=== PATIENT | male | born 1955 | race Two or more races ===

== ENCOUNTER 2024-09-06 08:48 | Inpatient (IN) | payer MEDICARE, OTHER ==
[~2024-09-06] VITALS: Ht 180.3 cm; Wt 93.0 kg
[2024-09-06] MEDS: SODIUM CHLORIDE 0.9% 1,000 ML IV ONE (09:15)
[2024-09-06 09:54] LABS: Basophils # (auto) 0 10 ^3/uL (0-0.2); Basophils % (auto) 0.7 % (0.0-2.0); Eosinophils # (auto) 0 10 ^3/uL (0-0.8); Eosinophils % (auto) 0.2 % (0.0-7.0); Hematocrit 34.4 % (41.0-53.0); Hemoglobin 11.2 g/dL (13.5-17.5); Lymphocytes # (auto) 0.8 10 ^3/uL (0.4-5.4); Mean Corpuscular Hemoglobin 30.4 pg (28.0-32.0); Mean Corpuscular Hgb Conc. 32.6 g/dL (32.0-36.0); Mean Corpuscular Volume 93.2 fL (80.0-100.0); Monocytes # (auto) 0.4 10 ^3/uL (0-1.3); Neutrophils % (auto) 76.1 % (37.0-80.0); Nucleated Red Blood Cells % 0.1 %; Platelet Count (auto) 124 10^3/uL (140-450); Red Blood Cells 3.69 10^6/uL (4.5-5.90); Red Cell Distribution Width 16.9 % (11.8-14.3); White Blood Cell 5.3 10^3/uL (4.4-10.8)
--- NOTE | 2024-09-06 09:56 | ED.PDOC ---
History of Present Illness HPI Comments 68 y.o male with PMH of ESRD, on dialysis, presents to the ED via EMS for a chief complaint of generalized weakness associated with diarrhea that presented 1-2 days ago. Patient was transported from [facility] for dialysis as they do not have a nephrology team at their location. Patient had dialysis yesterday, went up to [place] for vacation and began having loose water stool. Patient presents with lactic acid of 3.3 and BGL of 323 from [facility]. Patient denies any other symptoms or pain. Chief Complaint: General Weakness Time Seen by MD: 09:23 Reviewed Notes: Nurses Notes, Medications, Allergies Allergies: Coded Allergies: Azithromycin (Verified Allergy, Unknown, 09/06/24) Glimepiride (Verified Allergy, Unknown, 09/06/24) Glipizide (Verified Allergy, Unknown, 09/06/24) Information Source: Patient Mode of Arrival: EMS Severity: Moderate Timing: Days (1-2) Duration: Since onset Past Medical History PAST MEDICAL HISTORY: CKF, ESRD Family History Family History: Reviewed,noncontributory to illness Social History Smoker: Non-Smoker Alcohol: Denies ETOH Use Drugs: Denies Drug Use Lives In: Home Constitutional: reports: weakness; denies: chills, diaphoresis, fatigue, fever, malaise, sweats, others EENTM: denies: blurred vision, double vision, ear bleeding, ear discharge, ear drainage, ear pain, ear ringing, eye pain, eye redness, hearing loss, mouth minh n, mouth swelling, nasal discharge, nose bleeding, nose congestion, nose pain, photophobia, tearing, throat pain, throat swelling, voice changes, others Respiratory: denies: cough, hemoptysis, orthopnea, SOB at rest, shortness of breath, SOB with excertion, stridor, wheezing, others Cardiovascular: denies: chest pain, dizzy spells, diaphoresis, Dyspnea on exertion, edema, irregular heart beat, left arm pain, lightheadedness, palpitations, PND, syncope, others Gastrointestinal: reports: diarrhea; denies: abdomen distended, abdominal pain, blood streaked bowels, constipated, dysphagia, difficulty swallowing, hematemesis, melena, nausea, poor appetite, poor fluid intake, rectal bleeding, rectal pain, vomiting, others Genitourinary: denies: burning, dysuria, flank pain, frequency, hematuria, incontinence, penile discharge, penile sore, pain, testicle pain, testicle swelling, urgency, others Neurological: denies: dizziness, fainting, headache, left sided numbness, left sided weakness, numbness, paresthesia, pre-existing deficit, right sided numbness, right sided weakness, seizure, speech problems, tingling, tremors, weakness, others Musculoskeletal: denies: back pain, gout, joint pain, joint swelling, muscle pain, muscle stiffness, neck pain, others Integumetry: denies: bruises, change in color, change in hair/nails, dryness, laceration, lesions, lumps, rash, wounds, others Allergic/Immunocompromised: denies: Difficulty Healing, Frequent Infections, Hives, Itching, others Hematologic/Lymphatic: denies: anemia, blood clots, easy bleeding, easy bruising, swollen glands, others Endocrine: denies: excessive hunger, excessive sweating, excessive thirst, excessive urination, flushing, intolerance to cold, intolerance to heat, unexplained weight gain, unexplained weight loss, others Psychiatric: denies: anxiety, bipolar disorder, depression, hopeless, panic disorder, schizophrenia, sleepless, suicidal, others All Other Systems: Reviewed and Negative Physical Exam General Appearance: No Apparent Distress, Normal HEENT: Normal ENT Inspection, Pharynx Normal, TMs Normal Neck: Full Range of Motion, Non-Tender, Normal, Normal Inspection Respiratory: Chest Non-Tender, Lungs Clear, No Accessory Muscle Use, No Respiratory Distress, Normal Breath Sounds Cardiovascular: No Edema, No JVD, No Murmur, No Gallop, Normal Peripheral Pulses, Regular Rate/Rhythm Breast Exam: Deferred Gastrointestinal: No Organomegaly, Non Tender, No Pulsatile Mass, Normal Bowel Sounds, Soft Genitalia: Deferred Pelvic: Deferred Rectal: Deferred Extremities: No calf tenderness, Normal capillary refill, Normal inspection, Normal range of motion, Non-tender, No pedal edema Musculoskeletal : Apperance: Normal Neurologic: Alert, electrician rectifier maintenance II-XII nml as Tested, No Motor Deficits, Normal Affect, Normal Mood, No Sensory Deficits Cerebellar Function: Normal Reflexes: Normal Skin: Dry, Normal Color, Warm Lymphatic: No Adenopathy Was a procedure done? Was a procedure done?: No Differential Dx Considerations may include: Dehydration, Electrolyte imbalance, Viral syndrome X-Ray, Labs, Meds, VS Vital Signs Date Time Temp Pulse Resp B/P (MAP) Pulse Ox O2 Delivery O2 Flow Rate FiO2 09/06/24 11:08 84 09/06/24 10:37 85 18 126/73 (90) 98 09/06/24 10:15 98.1 86 20 126/73 (90) 98 98.1 09/06/24 10:15 20 20 98 Room Air* 0 21 09/06/24 09:00 87 09/06/24 08:50 98.0 86 18 128/78 (95) 98 Lab Test 09/06/24 11:00 09/06/24 09:30 Range/Units Troponin I High Sensitivity 427 *H 388 *H </=54 ng/L White Blood Count 5.3 4.4-10.8 10^3/uL Red Blood Count 3.69 L 4.5-5.90 10^6/uL Hemoglobin 11.2 L 13.5-17.5 g/dL Hematocrit 34.4 L 41.0-53.0 % Mean Corpuscular Volume 93.2 80.0-100.0 fL Mean Corpuscular Hemoglobin 30.4 28.0-32.0 pg Mean Corpuscular Hemoglobin Concent 32.6 32.0-36.0 g/dL Red Cell Distribution Width 16.9 H 11.8-14.3 % Platelet Count 124 L 140-450 10^3/uL Mean Platelet Volume 7.5 6.9-10.8 fL Neutrophils (%) (Auto) 76.1 37.0-80.0 % Lymphocytes (%) (Auto) 15.0 10.0-50.0 % Monocytes (%) (Auto) 8.0 0.0-12.0 % Eosinophils (%) (Auto) 0.2 0.0-7.0 % Basophils (%) (Auto) 0.7 0.0-2.0 % Neutrophils # (Auto) 4.0 1.6-8.6 10 ^3/uL Lymphocytes # (Auto) 0.8 0.4-5.4 10 ^3/uL Monocytes # (Auto) 0.4 0-1.3 10 ^3/uL Eosinophils # (Auto) 0 0-0.8 10 ^3/uL Basophils # (Auto) 0 0-0.2 10 ^3/uL Nucleated Red Blood Cells 0.1 % Prothrombin Time 12.3 H 9.3-11.8 sec Prothrombin Time INR 1.17 H 0.9-1.15 Activated Partial Thromboplast Time 29.4 24.5-34.5 SEC D-Dimer, Quantitative 0.38 0.0-0.49 mg/L FEU Sodium Level 136 136-145 mmol/L Potassium Level 4.0 3.5-5.1 mmol/L Chloride Level 101 98-107 mmol/L Carbon Dioxide Level 25 20-31 mmol/L Anion Gap 10 5-15 Blood Urea Nitrogen 38 H 9-23 mg/dL Creatinine 4.21 H 0.700-1.30 mg/dL Glomerular Filtration Rate Calc 15 >90 mL/min BUN/Creatinine Ratio 9.0 L 10.0-20.0 Serum Glucose 263 H 74-106 mg/dL Calcium Level 8.5 L 8.7-10.4 mg/dL Magnesium Level 2.4 1.6-2.6 mg/dL Total Bilirubin 2.9 H 0.2-1.0 mg/dL Aspartate Amino Transferase (AST) 35 13-40 U/L Alanine Aminotransferase (ALT) 34 7-40 U/L Alkaline Phosphatase 348 H 46-116 U/L Total Protein 7.3 5.7-8.2 g/dL Albumin 3.8 3.2-4.8 g/dL Current Medications Medications (Trade) Dose Ordered Sig/Gomez Route Start Time Stop Time Status Last Admin Sodium Chloride 1,000 ml @ 1,000 mls/hr Q1H ONCE IV 09/06/24 09:15 09/06/24 10:14 DC 09/06/24 09:15 X-Ray, Labs, Meds, VS Comment This 68-year-old male with a past medical history significant for end-stage renal disease [facility] He there was concern that he may require admission followed by dialysis. The time I interviewed, he states he was abdominal discomfort and multiple loose who has had largely resolved. His labs, however, was significant for an elevated total bilirubin and a troponin 388 and increased to 427 Time of 1ST Reevaluation: 09:55 Reevaluation 1ST: Unchanged Patient Education/Counseling: Diagnosis, Treatment, Prognosis Family Education/Counseling: No Family Present Additional Information The following tests were ordered, and results were reviewed by me: LAB, EKG, and PHA Additional Information was gathered from interviewing the following independent historians: paramedics I discussed treatment and results with medical personnel and spouse Departure 1 Departure Time of Disposition: 12:30 Impression: Primary Impression: Chest pain Additional Impressions: NSTEMI (non-ST elevated myocardial infarction) End stage renal disease Disposition: ADMITTED INPATIENT Admit to: Tele Condition: Serious Critical Care Note Critical Care Time?: No Stability Stability form required: No I personally scribed for VÍCTOR SARGENT MD ([email or web address]) on 09/06/24 at 09:56. Electronically submitted by Jihan Zaidi ([facility]). VÍCTOR SARGENT MD Sep 06, 2024 09:56
[2024-09-06 10:13] LABS: Alanine Aminotransferase 34 U/L (7-40); Albumin 3.8 g/dL (3.2-4.8); Anion Gap 10 (5-15); Aspartate Aminotransferase 35 U/L (13-40); Carbon Dioxide 25 mmol/L (20-31); Chloride 101 mmol/L (98-107); INR 1.17 (0.9-1.15); Magnesium 2.4 mg/dL (1.6-2.6); Partial Thromboplastin Time 29.4 SEC (24.5-34.5); Prothrombin Time 12.3 sec (9.3-11.8); Sodium 136 mmol/L (136-145); Total Protein 7.3 g/dL (5.7-8.2)
[2024-09-06 10:15] VITALS: PULSE 20; RESP 20; O2SAT 98
[2024-09-06 10:22] LABS: Alkaline Phosphatase 348 U/L (46-116); Bilirubin, Total 2.9 mg/dL (0.2-1.0); Blood Urea Nitrogen 38 mg/dL (9-23); Calcium 8.5 mg/dL (8.7-10.4); Glucose 263 mg/dL (74-106)
[2024-09-06] MEDS ORDERED: DEXTROSE (50%) 50ML SYRG IV PRN (15:00)
[2024-09-06] MEDS: FUROSEMIDE 40 MG/4 ML VIAL IV ONE (15:07)
[2024-09-06] MEDS: ATORVASTATIN 20 MG TAB PO ONE (15:07)
--- NOTE | 2024-09-06 15:13 | DVHHP2 ---
Admitting Diagnosis: Acute noninfectious GE with dehydration ESRD on HD TTS History of Present Illness 68 yo M with ESRD on HD TTS, IDDM, HFpEF transferred from [facility]. Admitted for vomiting and diarrhea, but transferred for HD. Patient received dialysis in [facility] in [place], last session on 09/05/24, access L AVF. Reported 1 episode of food vomiting and diarrhea with no blood, mucous or black stool which now has improved. However patient presents with lactic acid of 3.3 and BGL of 323 from [facility]. Patient has CGM. Reported compliance with medication. Received IVF in ED and [facility]. Labs significant for troponin elevation. Patient denies chest pain, SOB, new cough or sputum changes, diaphoresis. On my evaluation mendoza ent with trace crackles on basal b/l lung hood, taking lasix 80mg PO on non dialysis days. POCUS done with no pericardial effusion, normal contractility, grossly normal valves, IVC >2cm with <50% excursion on inspiration. Denies current smoking, drug or alcohol use. Lives in [place] with family, currently visiting [employer] for vacation. Patient had a LHC 1 year [employer] with normal cor onaries per patient, and follows up regularly with cardiology. Physical exam Alert, oriented x4 Moist mucous membranes PERRLA Mild b/l crackles on bases S1 S2 RRR no murmur BS+ abdomen soft nontender No LE edema Labs Hb 11 Plt 124 BUN 38 Cr 4.2 Glucose elevated Trop 388-474 POCUS was done and interpreted by me today, no pericardial effusion, normal contractility, normal valves A/P Acute noninfectious gastroenteritis dehydration 2/2 above ESRD on HD TTS acute on chronic diastolic heart failure HFpEF IDDM Thrombocytopenia Anemia chronic disease Troponin elevation 2/2 decreased clearance in setting of ESRD, no DC Obtain EKG, lactate, CXR Hold IVF for now resume lasix once maintain spo2 >94% resume plavix, lipitor hold coreg for now nephro consult for resumption of regular HD basal bolus insulin, FSx4 Date of Service: Sep 06, 2024 Billing Provider: ELIZABETH GUZMAN MD Common Visit Codes: [id number] INP/OBS CARE (HIGH), PROCEDURE ONLY (Cardiac point of care ultrasound [id number]) ELIZABETH GUZMAN MD Sep 06, 2024 15:13
--- NOTE | 2024-09-06 16:23 | DVH ---
XY CHEST TWO VIEWS ROUTINE CLINICAL HISTORY: pulm edema COMPARISON: 09/06/2024 report only TECHNIQUE: Frontal and lateral view of the chest was obtained FINDINGS: Lines and Tubes: None Lungs: No focal consolidation. Mild interstitial prominence. Elevation of the right hemidiaphragm. Minimal blunting of the right costophrenic angle No pneumothorax. Cardiomediastinal contours: Unremarkable Bones: No acute osseous abnormality. Chronic fracture deformity of left posterior ribs 6 through 8. IMPRESSION: Mild pulmonary vascular congestion. Trace right-sided pleural effusion.
[2024-09-06] MEDS: InsuLIN REG 1unit/0.01ml Soln (100units/ml) SC SCH ×2 (17:00→21:49)
[2024-09-06] MEDS: ACCU-CHEK COMFORT CURVE STRIP VI SCH (17:00)
--- NOTE | 2024-09-06 19:29 | DVHINCON2 ---
Date of service: Sep 06, [address] Sathya Mari Reason for Consultation ESRD History of Present Illness Mr. Monroe is a 68-year-old male with known history of ESRD on maintenance hemodialysis presented for further evaluation and management of abdominal pain and diarrhea. He initially presented to [facility] with above mentioned symptoms and was treated with intravenous fluids and transferred for further care. He seen in the emergency department awake alert conversant and in no acute distress. He had a family member who is at the bedside during my evaluation. He currently denies shortness of breath or chest pain. He has ongoing follow-up for a chronic right foot wound. Past Medical History ESRD Hypertension diabetes Peripheral artery disease Allergies: Coded Allergies: Azithromycin (Verified Allergy, Unknown, 09/06/24) Glimepiride (Verified Allergy, Unknown, 09/06/24) Glipizide (Verified Allergy, Unknown, 09/06/24) Current Medications Current Medications Medications (Trade) Dose Ordered Sig/Gomez Route PRN Reason Start Time Stop Time Status Last Admin Insulin Glargine (Lantus) 15 units HS SC 09/06/24 22:00 Diagnostic Test (Pha) (Accu-Chek Comfort Curve T) 1 strip ACHS 09/06/24 17:00 09/06/24 17:00 Insulin Human Regular (InsuLIN R) HS SC 09/06/24 22:00 Insulin Human Regular (InsuLIN R) AC SC 09/06/24 17:00 09/06/24 17:00 Dextrose 50 ml UD PRN IV Blood Sugar LESS THAN 60 09/06/24 15:00 Review of Systems denies fever, chills, nausea, chest pain, Rigors, hematochezia, hemoptysis. H&P Exam Vital Signs/I&O Vital Sign Date Time Temp Pulse Resp B/P (MAP) Pulse Ox O2 Delivery O2 Flow Rate FiO2 09/06/24 17:40 88 18 129/70 (89) 97 09/06/24 10:15 98.1 98.1 09/06/24 10:15 Room Air* 0 21 Physical Exam gen: nad heent: mmmn lungs: cta cvs: no rub abd: soft exT: no edema skin: no rash neuro: awake and alert Labs/Diagnostic Data Labs/Diagnostic Data Laboratory Tests Test 09/06/24 17:33 09/06/24 17:06 09/06/24 13:35 09/06/24 11:00 Range/Units POC Glucose 254 H 70-106 mg/dl Lactic Acid Level 1.6 0.4-2.0 mmol/L Troponin I High Sensitivity 474 *H 427 *H </=54 ng/L Test 09/06/24 09:30 Range/Units White Blood Count 5.3 4.4-10.8 10^3/uL Red Blood Count 3.69 L 4.5-5.90 10^6/uL Hemoglobin 11.2 L 13.5-17.5 g/dL Hematocrit 34.4 L 41.0-53.0 % Mean Corpuscular Volume 93.2 80.0-100.0 fL Mean Corpuscular Hemoglobin 30.4 28.0-32.0 pg Mean Corpuscular Hemoglobin Concent 32.6 32.0-36.0 g/dL Red Cell Distribution Width 16.9 H 11.8-14.3 % Platelet Count 124 L 140-450 10^3/uL Mean Platelet Volume 7.5 6.9-10.8 fL Neutrophils (%) (Auto) 76.1 37.0-80.0 % Lymphocytes (%) (Auto) 15.0 10.0-50.0 % Monocytes (%) (Auto) 8.0 0.0-12.0 % Eosinophils (%) (Auto) 0.2 0.0-7.0 % Basophils (%) (Auto) 0.7 0.0-2.0 % Neutrophils # (Auto) 4.0 1.6-8.6 10 ^3/uL Lymphocytes # (Auto) 0.8 0.4-5.4 10 ^3/uL Monocytes # (Auto) 0.4 0-1.3 10 ^3/uL Eosinophils # (Auto) 0 0-0.8 10 ^3/uL Basophils # (Auto) 0 0-0.2 10 ^3/uL Nucleated Red Blood Cells 0.1 % Prothrombin Time 12.3 H 9.3-11.8 sec Prothrombin Time INR 1.17 H 0.9-1.15 Activated Partial Thromboplast Time 29.4 24.5-34.5 SEC D-Dimer, Quantitative 0.38 0.0-0.49 mg/L FEU Sodium Level 136 136-145 mmol/L Potassium Level 4.0 3.5-5.1 mmol/L Chloride Level 101 98-107 mmol/L Carbon Dioxide Level 25 20-31 mmol/L Anion Gap 10 5-15 Blood Urea Nitrogen 38 H 9-23 mg/dL Creatinine 4.21 H 0.700-1.30 mg/dL Glomerular Filtration Rate Calc 15 >90 mL/min BUN/Creatinine Ratio 9.0 L 10.0-20.0 Serum Glucose 263 H 74-106 mg/dL Calcium Level 8.5 L 8.7-10.4 mg/dL Magnesium Level 2.4 1.6-2.6 mg/dL Total Bilirubin 2.9 H 0.2-1.0 mg/dL Aspartate Amino Transferase (AST) 35 13-40 U/L Alanine Aminotransferase (ALT) 34 7-40 U/L Alkaline Phosphatase 348 H 46-116 U/L Troponin I High Sensitivity 388 *H </=54 ng/L Total Protein 7.3 5.7-8.2 g/dL Albumin 3.8 3.2-4.8 g/dL Assessment IMP: 1) ESRD on dialysis 2) volume deplete state 3) anemia 4) enteritis 5) type 2 diabetes REC: - Hemodialysis September 07 - Discussed with patient and patient's visit regarding plan of care from nephrology perspective - clinically stable for discharge after dialysis. Plan discussed with: Patient, Spouse ASLMA OBRIEN MD Sep 06, 2024 19:29
[2024-09-06 20:00] VITALS: PULSE 73; RESP 20; O2SAT 95
[2024-09-06 21:00] VITALS: BP 116/65; PULSE 86; RESP 22; TEMP 97.9; O2SAT 97
[2024-09-06] MEDS: INSULIN LANTUS (GLARGINE) 1 /0.01ml (100units/ml) SC SCH (21:50)
[2024-09-07] VITALS (8 sets, daily range): BP systolic 114–153; BP diastolic 66–86; PULSE 77–94; RESP 16–20; TEMP 97.4–98.4; O2SAT 94–98
[2024-09-07] MEDS: SODIUM CHL 0.9% 1000 ML BAG XX ONE (07:00)
[2024-09-07 07:01] LABS: Chloride 104 mmol/L (98-107); Potassium 3.6 mmol/L (3.5-5.1); Sodium 137 mmol/L (136-145)
[2024-09-07 07:02] LABS: Anion Gap 9 (5-15); Carbon Dioxide 24 mmol/L (20-31)
[2024-09-07 07:07] LABS: BUN/Creatinine Ratio 9.4 (10.0-20.0)
[2024-09-07 08:27] LABS: Blood Urea Nitrogen 44 mg/dL (9-23); Calcium 8.3 mg/dL (8.7-10.4); Glucose 72 mg/dL (74-106)
[2024-09-07] MEDS: CLOPIDOGREL BISULFATE 75 MG TAB PO ONE (09:52)
--- NOTE | 2024-09-07 12:15 | DVHPN2 ---
Reviewed: Care Plan, H&P, Labs, Medications, Previous Orders, Radiology Changes from previous H/P or p: No Changes Objective Vitals Vital Signs Date Time Temp Pulse Resp B/P (MAP) Pulse Ox O2 Delivery O2 Flow Rate FiO2 09/07/24 08:56 98.3 88 16 146/77 (100) 97 98.3 09/07/24 08:00 Room Air* 0 21 Intake/Output Intake and Output 09/07/24 07:00 Intake Total 1345 ml Balance 1345 ml Intake Oral 345 ml IV Total 1000 ml Medications Current Medications Medications Dose Ordered Sig/Gomez Route Start Time Stop Time Status Last Admin Dose Admin Insulin Glargine 15 units HS SC 09/06/24 22:00 09/06/24 21:50 15 UNITS Diagnostic Test (Pha) 1 strip ACHS 09/06/24 17:00 09/07/24 11:37 1 STRIP Insulin Human Regular HS SC 09/06/24 22:00 09/06/24 21:49 2 UNITS Insulin Human Regular AC SC 09/06/24 17:00 09/07/24 11:41 3 UNITS Dextrose 50 ml UD PRN IV 09/06/24 15:00 Laboratory Results Laboratory Tests 09/06/24 09:30 09/07/24 05:19 Chemistry Test 09/07/24 05:19 Calcium Level 8.3 mg/dL (8.7-10.4) L Labs and/or images reviewed: Labs reviewed by me, Image(s) reviewed by me Assessment/Plan Assessment/Plan Patient transferred from [facility] ESRD on hemodialysis: Consult by Dr. Lopez appreciated patient getting hemodialysis today Hypertension Type 2 diabetes History of congestive heart failure Chronic anemia Possible gastroenteritis Elevated troponin [address] Estrella Patient Lives in [place] and was visiting [facility] Patient does not want to wait for the Cardiology consultation and wants to leave against medical advice, consequences and complications explained to the patient Time spent 65 minutes Patient is full code Advanced care planning time 20 minutes Plan discussed with: Patient My Orders Orders - JOSE DANIEL CARRILLO MD Procedure Category Date Status Time * Cardiology Consult CONS 09/07/24 Transmitted 12:04 Date of Service: Sep 07, 2024 Billing Provider: JOSE DANIEL CARRILLO MD Common Visit Codes: [id number] INP/OBS CARE(HIGH) Secondary Visit Codes: [id number] CARE PLAN 30 MINUTES JOSE DANIEL CARRILLO MD Sep 07, 2024 12:15
--- NOTE | 2024-09-07 14:41 | DVHINCON2 ---
Date Seen: Sep 07, 2024 Referring Physician MD Dinh Reason for Consultation Elevated troponin History of Present Illness This is a 68-year-old male patient who presents to emergency room with chief complaint of diarrhea and dehydration. The patient was transferred from [facility] for higher level of care. Patient reports recent dialysis and diarrhea, leading him to feel dehydrated which is why he went to the emergency room and was brought here. Initial twelve lead electrocardiogram reveals normal sinus rhythm with right bundle branch block and left anterior fascicular block. The patient denies any cardiac symptoms. Initial troponin level of 388ng/L with peak level of 474ng/L. Significant past medical history includes congestive heart failure, hypertension, hyperlipidemia, end-stage renal disease on hemodialysis, insulin-dependent type 2 diabetes mellitus, and anemia. The patient reports that he follows up with a heavy forger at [facility]. He reports undergoing a coronary angiogram approximately one year ago without any catheter based intervention at that time. Past Medical History Past medical history reviewed. No other significant than mentioned above. Past Surgical History Right foot surgery Left arm fistula Family History Family history reviewed. Social History Denies the use of tobacco, alcohol or illicit drugs. Allergies: Coded Allergies: Azithromycin (Verified Allergy, Unknown, 09/06/24) Glimepiride (Verified Allergy, Unknown, 09/06/24) Glipizide (Verified Allergy, Unknown, 09/06/24) Home Meds Home medications reviewed. Current Medications Current Medications Medications (Trade) Dose Ordered Sig/Gomez Route PRN Reason Start Time Stop Time Status Last Admin Insulin Glargine (Lantus) 15 units HS SC 09/06/24 22:00 09/06/24 21:50 Diagnostic Test (Pha) (Accu-Chek Comfort Curve T) 1 strip ACHS 09/06/24 17:00 09/07/24 11:37 Insulin Human Regular (InsuLIN R) HS SC 09/06/24 22:00 09/06/24 21:49 Insulin Human Regular (InsuLIN R) AC SC 09/06/24 17:00 09/07/24 11:41 Dextrose 50 ml UD PRN IV Blood Sugar LESS THAN 60 09/06/24 15:00 Review of Systems Constitutional: No symptom reported Ears, Nose, & Throat: No symptom reported Eyes: No symptom reported Neurological: No symptoms reported Pulmonary/Respiratory: No symptoms reported Cardiovascular: No symptom reported Gastrointestinal: Diarrhea Genitourinary: No symptom reported Musculoskeletal: No symptom reported Skin: No symptom reported Psychiatric: No symptom reported Endocrine: No symptom reported Hematologic/Lymphatic: No symptom reported Vital Signs Vital Signs Date Time Temp Pulse Resp B/P (MAP) Pulse Ox O2 Delivery O2 Flow Rate FiO2 09/07/24 13:00 97.4 87 18 153/85 (107) 98 97.4 09/07/24 08:00 Room Air* 0 21 Physical Exam General Appearance: Cooperative. Well-developed. Well-nourished. No acute distress. Pulmonary/Respiratory: Clear, bilateral breaths sounds. Cardiovascular/Chest: Regular rate and rhythm. Peripheral Pulses: 2+ Radial (R). 2+ Radial (L). Abdominal Exam: Normal bowel sounds. Ankle Exam: Negative ankle edema Lower extremities: Negative lower extremity edema Neuro/Mental Status: A/OX4, coherent. Thoughts/Psych: Normal thought pattern. Appropriate mood and affect. Good judgment and insight. Appearance: No acute distress. Skin Exam: Normal inspection. Normal color. Warm and dry. Left arm fistula Labs/Diagnostic Data Labs Test 09/07/24 11:33 09/07/24 05:19 09/06/24 17:06 09/06/24 13:35 Range/Units POC Glucose 179 H 70-106 mg/dl Sodium Level 137 136-145 mmol/L Potassium Level 3.6 3.5-5.1 mmol/L Chloride Level 104 98-107 mmol/L Carbon Dioxide Level 24 20-31 mmol/L Anion Gap 9 5-15 Blood Urea Nitrogen 44 H 9-23 mg/dL Creatinine 4.67 H 0.700-1.30 mg/dL Glomerular Filtration Rate Calc 13 >90 mL/min BUN/Creatinine Ratio 9.4 L 10.0-20.0 Serum Glucose 72 #L 74-106 mg/dL Calcium Level 8.3 L 8.7-10.4 mg/dL Lactic Acid Level 1.6 0.4-2.0 mmol/L Troponin I High Sensitivity 474 *H </=54 ng/L Test 09/06/24 09:30 Range/Units White Blood Count 5.3 4.4-10.8 10^3/uL Red Blood Count 3.69 L 4.5-5.90 10^6/uL Hemoglobin 11.2 L 13.5-17.5 g/dL Hematocrit 34.4 L 41.0-53.0 % Mean Corpuscular Volume 93.2 80.0-100.0 fL Mean Corpuscular Hemoglobin 30.4 28.0-32.0 pg Mean Corpuscular Hemoglobin Concent 32.6 32.0-36.0 g/dL Red Cell Distribution Width 16.9 H 11.8-14.3 % Platelet Count 124 L 140-450 10^3/uL Mean Platelet Volume 7.5 6.9-10.8 fL Neutrophils (%) (Auto) 76.1 37.0-80.0 % Lymphocytes (%) (Auto) 15.0 10.0-50.0 % Monocytes (%) (Auto) 8.0 0.0-12.0 % Eosinophils (%) (Auto) 0.2 0.0-7.0 % Basophils (%) (Auto) 0.7 0.0-2.0 % Neutrophils # (Auto) 4.0 1.6-8.6 10 ^3/uL Lymphocytes # (Auto) 0.8 0.4-5.4 10 ^3/uL Monocytes # (Auto) 0.4 0-1.3 10 ^3/uL Eosinophils # (Auto) 0 0-0.8 10 ^3/uL Basophils # (Auto) 0 0-0.2 10 ^3/uL Nucleated Red Blood Cells 0.1 % Prothrombin Time 12.3 H 9.3-11.8 sec Prothrombin Time INR 1.17 H 0.9-1.15 Activated Partial Thromboplast Time 29.4 24.5-34.5 SEC D-Dimer, Quantitative 0.38 0.0-0.49 mg/L FEU Magnesium Level 2.4 1.6-2.6 mg/dL Total Bilirubin 2.9 H 0.2-1.0 mg/dL Aspartate Amino Transferase (AST) 35 13-40 U/L Alanine Aminotransferase (ALT) 34 7-40 U/L Alkaline Phosphatase 348 H 46-116 U/L Total Protein 7.3 5.7-8.2 g/dL Albumin 3.8 3.2-4.8 g/dL Assessment Acute on chronic HFrEF, NYHA class III Possible gastroenteritis NSTEMI, likely type II Tricuspid valve regurgitation, moderate degree Insulin-dependent type 2 diabetes mellitus End-stage renal disease on hemodialysis Pulmonary hypertension Thrombocytopenia Plan/Recommendation We will continue with the following plan/recommendations (Dr. Estrella): * Echocardiogram reveals EF 35-40% * Initiate GDMT for CHF as tolerated * Avoid SGLT2i given low GFR * Avoid BLAIR/ARB/ARNI given ESRD * BP control * Labs: lipid panel * Nephrology consult and recommendations Case discussed with . Patient denies any cardiac symptoms at time of assessment and prior to emergency room arrival. Patient underwent a coronary angiogram with left heart catheterization last year without any catheter based intervention. If patient begins to have cardiac symptoms, he may be a candidate for ischemic workup. In the meantime, continue with medical management. Thank you for allowing us to care for this patient. Please call with any questions or concerns. Critical care time spent: 44 minutes This medical document was created using an electronic medical record system with voice recognition software and computerized dictation system. Although this document has been carefully reviewed, there might still be some phonetic and typographical errors. Occasional wrong-word or ``sound-alike substitutions may have occurred due to the inherent limitations of voice recognition software. These areas are purely typographical due to imperfections of the software p stephanie and do not reflect any compromise in the patient's medical care. Please read the chart carefully and recognize, using context, where these substitutions have occurred. Plan discussed with: Patient NYHA Physical activity limitations: Class3(Marked) ordinary (activity causes symtoms) Date of Service: Sep 07, 2024 Billing Provider: EDISON GUIDO Cardiology Common Codes: 70555-YJUIYZD INP/OBS CARE (High) Cardiology Consultation Codes: 08405-[id number] CONSULT <45MIN EDISON GUIDO Sep 07, 2024 14:41
--- NOTE | 2024-09-07 16:12 | DVHPN2 ---
Progress Note Date Seen: Sep 07, 2024 Medical Necessity Reason Pt with a Central, PICC or Fol: No Subjective Review of Systems No new complaints Patient reports: No new complaints Objective vital signs Vital Sign Date Time Temp Pulse Resp B/P (MAP) Pulse Ox O2 Delivery O2 Flow Rate FiO2 09/07/24 13:00 97.4 87 18 153/85 (107) 98 97.4 09/07/24 08:00 Room Air* 0 21 Total Intake and Output 09/06/24 09/06/24 09/07/24 15:00 23:00 07:00 Intake Total 1000 ml 345 ml Balance 1000 ml 345 ml medications Current Medications Medications Dose Ordered Sig/Gomez Route Start Time Stop Time Status Last Admin Dose Admin Insulin Glargine 15 units HS SC 09/06/24 22:00 09/06/24 21:50 15 UNITS Diagnostic Test (Pha) 1 strip ACHS 09/06/24 17:00 09/07/24 11:37 1 STRIP Insulin Human Regular HS SC 09/06/24 22:00 09/06/24 21:49 2 UNITS Insulin Human Regular AC SC 09/06/24 17:00 09/07/24 11:41 3 UNITS Dextrose 50 ml UD PRN IV 09/06/24 15:00 Examination Gen: Appears stated age, in no acute distress Lungs: Bilateral air entry, no rales Heart: RRR. normal S1 and S2 Ext: No edema Neuro: AOx4 laboratory and microbiology Laboratory Tests 09/07/24 05:19 09/06/24 09:30 Test 09/07/24 05:19 Range/Units Serum Glucose 72 #L 74-106 mg/dL Labs and/or images reviewed: Labs reviewed by me Problem List/Assessment/Plan Problem List/Assessment/Plan IMP: 1) ESRD on dialysis- last dialysis today. [place] from out of area has dialysis on MWF 2) Volume depleted state 3) Anemia-last hgb 11.2 4) Enteritis 5) Type 2 diabetes REC: - Chemistry panel - Clinically stable for discharge after dialysis. 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 - Will continue to follow if pt has not discharged Plan discussed with: Patient ETHEL MARAVILLA LISSETTE Sep 07, 2024 16:12
--- NOTE | 2024-09-07 17:00 | DVHSR ---
APPROVED REPORT EXAM: Two-dimensional and M-mode echocardiogram with Doppler and color Doppler. Blood Pressure: 153/85 mmHg INDICATION evaluate cardiac function RISK FACTORS Height: 5'11, Weight: 210 DIMENSIONS LVDd4.1 (3.8-5.7cm)LA (2D)3.4 (1.9-4.0cm)Aortic Root3.4 (2.0-3.7cm) LVDs3.2 (2.5-4.0cm)LA (MM) (1.9-4.0cm)Aortic Cusp Exc1.5 (1.5-2.0cm) EF (%) 42.0 (55-70%)Rt. Atrium5.0 (1.9-4.0cm)Asc. Aorta3.1 cm IVSd1.1 (0.7-1.1cm)RV (D) (1.8-2.4cm) PWd1.2 (0.7-1.1cm) Mitral Valve MitralMitral Stenosis E wave1.25m/sMV Mean GR.mmHg A wave0.67m/sMV Peak GR.127mmHg E/A ratio1.92D MVAcm2 DECEL [id number] 1/2 Timems Aortic Valve Aortic ValveAortic Stenosis V10.73m/Nicole Mean GR.2mmHg V21.05m/Nicole Peak GR.4mmHg LVOT Diameter2.1 (1.8-2.4cm)Doppler AVA2.41cm2 AI P 1/2 Cyhy902.08ms Pulmonic Valve V21.32m/s Tricuspid Valve TR Velocity2.77m/s [id number] Conclusion Technically good study sinus rhythm. Left atrial enlargement. Right atrial enlargement. Mild mitral annular calcification. Mild thickening of the tip of the anterior mitral leaflet. The a ortic valve leaflets are sclerotic with calcification of the right coronary cusp however adequate exc ursion. The pulmonic valve is structurally normal. The tricuspid valve is normal. Left ventricular systolic performance is diminished. EF is approximately 35-40% with [id number] e global hypokinesis. Right ventricular function appears to be mildly hypokinetic as well. There is moderate mitral insufficiency with moderate tricuspid regurgitation and notable pulmonary hy pertension. There is eefq-eg-vstccuzg aortic insufficiency. No pericardial effusion masses or vegetations.
--- NOTE | 2024-09-07 19:12 | ECG ---
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
[2024-09-08 01:00] VITALS: BP 141/74; PULSE 86; RESP 22; TEMP 98.1; O2SAT 98
[2024-09-08 05:00] VITALS: BP 121/63; PULSE 81; RESP 20; TEMP 98.1; O2SAT 96
--- NOTE | 2024-09-08 05:21 | ECG ---
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
[2024-09-08 08:00] VITALS: RESP 16
[2024-09-08 09:00] VITALS: BP 144/82; PULSE 90; RESP 17; TEMP 98.1; O2SAT 98
[2024-09-08] MEDS: METOPROLOL SUCCINATE XL 50 MG TAB PO SCH (09:49)
--- NOTE | 2024-09-08 12:05 | DVHPN2 ---
Reviewed: Care Plan, H&P, Labs, Medications, Previous Orders, Radiology Changes from previous H/P or p: No Changes Objective Vitals Vital Signs Date Time Temp Pulse Resp B/P (MAP) Pulse Ox O2 Delivery O2 Flow Rate FiO2 09/08/24 09:51 90 144/82 09/08/24 09:00 98.1 17 98 98.1 09/08/24 08:00 Room Air* 0 21 Intake/Output Intake and Output 09/08/24 07:00 Intake Total 345 ml Balance 345 ml Intake Oral 345 ml Medications Current Medications Medications Dose Ordered Sig/Gomez Route Start Time Stop Time Status Last Admin Dose Admin Insulin Glargine 15 units HS SC 09/06/24 22:00 09/07/24 21:42 15 UNITS Diagnostic Test (Pha) 1 strip ACHS 09/06/24 17:00 09/08/24 06:07 1 STRIP Insulin Human Regular HS SC 09/06/24 22:00 09/07/24 21:41 6 UNITS Insulin Human Regular AC SC 09/06/24 17:00 09/07/24 17:34 3 UNITS Dextrose 50 ml UD PRN IV 09/06/24 15:00 Metoprolol Succinate 25 mg DAILY PO 09/08/24 10:00 Laboratory Results Laboratory Tests 09/06/24 09:30 09/07/24 05:19 Assessment/Plan Assessment/Plan Patient transferred from [facility] ESRD on hemodialysis: Consult by Dr. John desai patient received hemodialysis Hypertension Type 2 diabetes History of congestive heart failure Chronic anemia Possible gastroenteritis Elevated troponin [address] Estrella appreciated, left heart catheterization last year was normal per patient, no further cardiac intervention Plan discussed with: Patient My Orders Orders - JOSE DANIEL CARRILLO MD Procedure Category Date Status Time * Cardiology Consult CONS 09/07/24 Transmitted 12:04 Date of Service: Sep 08, 2024 Billing Provider: JOSE DANIEL CARRILLO MD Common Visit Codes: [id number] INP/OBS CARE(HIGH) JOSE DANIEL CARRILLO MD Sep 08, 2024 12:05
--- NOTE | 2024-09-08 12:09 | DVHDS2 ---
Discharge Summary Date of Admission Sep 06, 2024 at 14:46 Date of Discharge: Sep 08, 2024 Admitting Diagnosis Shortness of breaths and chest pain Wounds: None Labs/Diagnostic Data: Laboratory Results Test 09/08/24 06:00 09/07/24 05:19 09/06/24 17:06 09/06/24 13:35 POC Glucose 69 mg/dl (70-106) Sodium Level 137 mmol/L (136-145) Potassium Level 3.6 mmol/L (3.5-5.1) Chloride Level 104 mmol/L (98-107) Carbon Dioxide Level 24 mmol/L (20-31) Anion Gap 9 (5-15) Blood Urea Nitrogen 44 mg/dL (9-23) Creatinine 4.67 mg/dL (0.700-1.30) Glomerular Filtration Rate Calc 13 mL/min (>90) BUN/Creatinine Ratio 9.4 (10.0-20.0) Serum Glucose 72 mg/dL (74-106) Calcium Level 8.3 mg/dL (8.7-10.4) Lactic Acid Level 1.6 mmol/L (0.4-2.0) Troponin I High Sensitivity 474 ng/L (</=54) Test 09/06/24 09:30 White Blood Count 5.3 10^3/uL (4.4-10.8) Red Blood Count 3.69 10^6/uL (4.5-5.90) Hemoglobin 11.2 g/dL (13.5-17.5) Hematocrit 34.4 % (41.0-53.0) Mean Corpuscular Volume 93.2 fL (80.0-100.0) Mean Corpuscular Hemoglobin 30.4 pg (28.0-32.0) Mean Corpuscular Hemoglobin Concent 32.6 g/dL (32.0-36.0) Red Cell Distribution Width 16.9 % (11.8-14.3) Platelet Count 124 10^3/uL (140-450) Mean Platelet Volume 7.5 fL (6.9-10.8) Neutrophils (%) (Auto) 76.1 % (37.0-80.0) Lymphocytes (%) (Auto) 15.0 % (10.0-50.0) Monocytes (%) (Auto) 8.0 % (0.0-12.0) Eosinophils (%) (Auto) 0.2 % (0.0-7.0) Basophils (%) (Auto) 0.7 % (0.0-2.0) Neutrophils # (Auto) 4.0 10 ^3/uL (1.6-8.6) Lymphocytes # (Auto) 0.8 10 ^3/uL (0.4-5.4) Monocytes # (Auto) 0.4 10 ^3/uL (0-1.3) Eosinophils # (Auto) 0 10 ^3/uL (0-0.8) Basophils # (Auto) 0 10 ^3/uL (0-0.2) Nucleated Red Blood Cells 0.1 % Prothrombin Time 12.3 sec (9.3-11.8) Prothrombin Time INR 1.17 (0.9-1.15) Activated Partial Thromboplast Time 29.4 SEC (24.5-34.5) D-Dimer, Quantitative 0.38 mg/L FEU (0.0-0.49) Magnesium Level 2.4 mg/dL (1.6-2.6) Total Bilirubin 2.9 mg/dL (0.2-1.0) Aspartate Amino Transferase (AST) 35 U/L (13-40) Alanine Aminotransferase (ALT) 34 U/L (7-40) Alkaline Phosphatase 348 U/L (46-116) Total Protein 7.3 g/dL (5.7-8.2) Albumin 3.8 g/dL (3.2-4.8) Other Laboratory Tests 09/07/24 05:19 09/06/24 09:30 Brief Hx & Hospital Course: 68-year-old male with using [place] was visiting [facility] got admitted with a [facility] transferred here and admitted. History of ESRD on hemodialysis patient had mild gastroenteritis which has resolved. history of hypertension diabetes congestive heart failure chronic anemia troponin elevated [address] Estrella patient had left heart catheterization last year per patient and it was normal advised conservative management. Patient received hemodialysis by Dr. Lopez group. While awaiting further stabilization patient decided to leave AMA and left AMA on 09/08/2024. General condition stable but poor at the time of leaving AMA. Consequences and complications including possible explained to the patient and he verbalized understanding and still decided to leave AMA Consults/Reason for consult Cardiology Dr. Estrella Nephrology Dr. Lopez Operations or Procedures Hemodialysis Condition at Discharge: Fair Final Diagnosis/Problems List Patient transferred from [facility] ESRD on hemodialysis: Consult by Dr. Lopez appreciated patient received hemodialysis Hypertension Type 2 diabetes History of congestive heart failure Chronic anemia Possible gastroenteritis Elevated troponin [address] Estrella appreciated, left heart catheterization last year was normal per patient, no further cardiac intervention Discharge Disposition: AMA Discharge Instruct/Medications Diet comment: Not applicable Patient left AMA Activity comment: Not applicable Patient left AMA Follow Up/Referral: Not applicable Patient left AMA Medications: Not applicable Patient left AMA 35 (Time taken for discharge summary 35 minutes) Discharge Statement: "Patient was advised to return to the ER or call 911 if any headaches, dizziness, shortness of breath, chest pain, abdominal pain, bleeding, fevers, or worsening of medical condition. Patient was counseled about treatment plan, medications, possible side effects, patientverbalized understanding. All questions were answered to the best of my ability. This discharge took greater then 30 minutes in planning, reviewing documentation, counseling the patient, and discussing with other team members." ASSESSMENT ASSESSMENT Hospital Course Left AMA Assessment Date of Service: Sep 08, 2024 Billing Provider: JOSE DANIEL CARRILLO MD Common Visit Codes: 78799-RBI/OBS DISCH DAY >30min JOSE DANIEL CARRILLO MD Sep 08, 2024 12:09
== END 2024-09-08 12:01 | disposition left against medical advice (07) | DRG 280 ==
LOC: EDBD 08:48 → ER 08:48 → OVERFLOW 14:46 → WEST WING 18:50
PROVIDERS: ADMIT Student in an Organized Health Care Education/Training Program; ATTEND Student in an Organized Health Care Education/Training Program
PROC: 5A1D70Z Performance of Urinary Filtration, Intermittent, Less than 6 Hours Per Day (ICD-10-PCS; principal; 2024-09-07)
DX: I13.2 Hypertensive heart and chronic kidney disease with heart failure and with stage 5 chronic kidney disease, or end stage renal disease (principal); I50.23 Acute on chronic systolic (congestive) heart failure; I21.A1 Myocardial infarction type 2; N18.6 End stage renal disease; I45.2 Bifascicular block; A08.4 Viral intestinal infection, unspecified; E86.0 Dehydration; Z53.29 Procedure and treatment not carried out because of patient's decision for other reasons; D69.6 Thrombocytopenia, unspecified; E11.22 Type 2 diabetes mellitus with diabetic chronic kidney disease; E11.51 Type 2 diabetes mellitus with diabetic peripheral angiopathy without gangrene; E78.5 Hyperlipidemia, unspecified; D63.8 Anemia in other chronic diseases classified elsewhere; I07.1 Rheumatic tricuspid insufficiency; I27.20 Pulmonary hypertension, unspecified; Z88.8 Allergy status to other drugs, medicaments and biological substances; Z79.4 Long term (current) use of insulin; Z79.02 Long term (current) use of antithrombotics/antiplatelets; Z99.2 Dependence on renal dialysis
CPT/HCPCS: 36415; 71046; 80048; 80053; 82962; 83605; 83735; 84484; 85025; 85379; 85610; 85730; 90935; 93005; 93306; G0378; J1815